=== PATIENT | male | born 1970 | race Caucasian/White ===

== ENCOUNTER 2020-12-14 04:46 | Emergency (ER) | payer OTHER, SELFPAY ==
[2020-12-14 04:48] VITALS: BP 153/100; PULSE 84; RESP 16; TEMP 36.4; O2SAT 95; BMI 25.4
[2020-12-14 05:16] LABS: Absolute Lymphocyte Count 0.87 X10^3/uL (0.83-4.51); Absolute Neutrophil Count 6.5 X10^3/uL (2.0-7.7); Basophil# 0.05 X10^3/uL; Basophil% 0.6 % (0-1); Eosinophil# 0.08 X10^3/uL; Hematocrit 44.5 % (40-54); Hemoglobin 16.1 g/dL (13.0-16.5); Lymphocyte # 0.87 X10^3/ul (4.0); Mean Corp Hgb Conc 36.2 g/dL (32-36); Mean Corpuscular Hgb 31.3 pg (27.0-32.0); Mean Corpuscular Volume 86.6 fL (80-94); Mean Platelet Vol. 8.7 fl (6.2-12.0); Monocyte% 5.1 % (0-10); NRBC Flagged by Analyzer 0 % (0-5); Neutrophil # 6.49 X10^3/uL (2.7-7.7); Platelet Count 244 K/mm3 (150-450); RBC Distribution Width CV 11.2 % (11.6-14.6); RBC Distribution Width SD 35.7 fl (35.1-43.9); Red Blood Count 5.14 M/mm3 (4.6-6.2); White Blood Count 7.9 K/mm3 (4.4-11.0)
--- NOTE | 2020-12-14 05:18 | CT_ITS ---
HISTORY: left flank pain TECHNIQUE: Helically acquired images were obtained of the abdomen and pelvis without oral or IV contrast. A radiation dose optimization technique was used for this scan. COMPARISON: [address] scan of the abdomen and pelvis is from May 03, 2014. FINDINGS: # of images incl. paperwork: 465 LUNG BASES: Right lower lobe benign calcified granuloma. Scarring within the right posterior lung is unchanged. CT abdomen: Some degenerative disc disease. Mild thoracolumbar dextroscoliosis may just be due to splinting. The gallbladder remains. The stomach is distended with gas and liquid.. Liver, spleen, pancreas, and adrenal glands are normal. The right kidney is normal. Left kidney demonstrates edema, perirenal edema, hydronephrosis, and nonobstructing nephroliths. Within the proximal left ureter, perhaps best demonstrated on the coronal images, there are at least 6 stones within the ureter. The lead stone, the most inferior stone, causing the obstruction with in the proximal left ureter measures 5 x 6 mm. This is present best demonstrated on series 601 image 57, and coronal 2-D reformats. Exophytic hypodense mass the posterior aspect midportion left kidney is likely a benign cyst. Hypodense areas within the anterior cortex of midportion of the left kidney also likely represent benign cysts. No more distal left ureteric stones are perceived.. The aorta is diseased with atherosclerotic plaque, but without aneurysm.. There is no intra-or extrahepatic biliary ductal dilatation. CT pelvis: No ascites is present. The prostate gland is minimally enlarged indenting into the posterior inferior aspect of the urinary bladder. The appendix is normal. Series 2 image 109. The bladder is mostly decompressed. Small bilateral inguinal hernias containing only fat. Diverticulosis from the transverse colon into the sigmoid colon without diverticulitis.. CT/Abdomen/Pelvis without Cont IMPRESSION: Probably 6 stones fall on top of each other, stacked on one another within the proximal left ureter. The most downstream of the stones, the stone causing the obstruction of the left ureter measures 6 x 5 mm. Left hydronephrosis left hydroureter and left perirenal edema. Distended stomach with gas and liquid. Individualized dose optimization techniques were used for this CT. at 0644 Reported and signed by: Ron Barnes MD Electronically Signed: Ron Barnes MD at 6:43 EDT Tel , Service support ,
--- NOTE | 2020-12-14 05:18 | ED.DCSUM_ITS ---
History of Present Illness Chief Complaint: Flank Pain Informant: Patient - Abdominal Pain/Flank Pain Onset: Hours - 4 Context: Sudden Onset Timing: Continuous, Waxes and wanes Quality: Aching Location: Left Flank Current Severity: Severe Maximum Severity: Severe Worsened by: Nothing Relieved by: Nothing - Nausea/Vomiting/Emesis GI Symptom: Nausea - Diarrhea/Melena/Hematochezia GI Symptom: Negative for: Diarrhea, Melena, Hematochezia Associated Symptoms: Negative for: Dysuria, Frequency, Hematuria Narrative: Patient with multiple prior kidney stones, he has had surgical removal of them in the past, but he has not had one in a while. He took an oxycodone this morning after the pain started but it is not controlling the pain at all. Prior similar symptoms: Yes - Kidney stones Recent Illness/Hospitalization: No - Past Medical History (1) Hyperlipidemia Status: Chronic (2) Prediabetes Status: Chronic (3) Kidney stones Status: Chronic Past Medical History - Allergies and Home Meds Allergies/Adverse Reactions: Allergies celecoxib [From Celebrex] Allergy (Verified 12/14/20 04:48) Svetlana Primary Care Physician: Mary Jane Dangelo CHIPPING MACHINE OPERATOR, CHIPPING MACHINE OPERATOR-C [Primary Care Provider] - Doctors: Urology - Tim Surgical History: - - Kidney stones Smoking Status: Former smoker Review of Systems General: Denies: Chills, Fever, Sweats Eyes: Denies: Visual changes - bilaterally, Diplopia ENT: Denies: Rhinorrhea, Sore throat Cardiovascular: Denies: Chest pain, Palpitations Respiratory: Denies: Dyspnea, Cough, Dyspnea on exertion Gastrointestinal: Reports: Abdominal pain, Nausea. Denies: Vomiting, Diarrhea, Melena, Hematochezia Genitourinary: Denies: Dysuria, Hematuria, Frequency Musculoskeletal: Reports: Back pain. Denies: Extremity Pain Skin: Denies: Rash, Wounds Neurological: Denies: Headache, Weakness, Numbness Physical Exam Vital Signs/Narrative: Vital Signs Temp Pulse Resp BP Pulse Ox 12/14/20 04:48 97.6 F L 84 16 153/100 H 95 Inital Vital Signs reviewed: Yes General: Well nourished, Well developed, Acute Distress - painful; pacing room Head: Normocephalic, Atraumatic Eyes: Perrl, EOMI ENT: Moist mucous membranes, No rhinorrhea Neck: Supple, Nontender Cardiovascular: Regular rate, Regular rhythm, No murmurs Respiratory: No distress, CTA bilaterally, Chest nontender Abdomen: Soft, Nondistended, Normal bowel sounds, Tender - in left lateral flank only, closer to back, subcostal Back: Nontender, Normal Inspection. Negative for: CVA tenderness Extremities: Nontender, No edema Skin: Normal color, No rash, No Trauma Neurological: Alert, Oriented x3, Cranial nerves II-XII grossly intact, Normal Strength, Normal Sensation, Normal Gait Psychological: Normal Mood, Agitated - mildly due to pain Diagnostic/Tx/Re-eval Impressions Abdomen/Pelvis CT 12/14/20 05:18 IMPRESSION: Probably 6 stones fall on top of each other, stacked on one another within the proximal left ureter. The most downstream of the stones, the stone causing the obstruction of the left ureter measures 6 x 5 mm. Left hydronephrosis left hydroureter and left perirenal edema. Distended stomach with gas and liquid. Individualized dose optimization techniques were used for this CT. at 0644 Reported and signed by: Ron Barnes MD Electronically Signed: Ron Barnes MD at 6:43 EDT Tel , Service support , 12/14/20 05:18 CT Abd [Abdomen/Pelvis without Cont] [CT] Stat Laboratory Results 12/14/20 12/14/20 12/14/20 04:55 04:55 05:40 WBC 7.9 RBC 5.14 Hgb 16.1 Hct 44.5 MCV 86.6 MCH 31.3 MCHC 36.2 H RDW Std Deviation 35.7 RDW Coeff of Ryder 11.2 L Plt Count 244 MPV 8.7 Immature Gran % (Auto) 0.300 Neut % (Auto) 82.0 H Lymph % (Auto) 11.0 L Lawrence % (Auto) 5.1 Eos % (Auto) 1.0 Baso % (Auto) 0.6 Absolute Neuts (auto) 6.5 Absolute Lymphs (auto) 0.87 Nucleated RBC % 0 Sodium 136 Potassium 4.0 Chloride 103 Carbon Dioxide 22.0 Anion Gap 11 BUN 17 Creatinine 1.27 Estim Creat Clear Calc 68.81 Est GFR (MDRD) Af Amer 77 Est GFR (MDRD) Non-Af 63 BUN/Creatinine Ratio 13.4 Glucose 281 H Calcium 9.6 Urine Color Yellow Urine Clarity Clear Urine pH 5.0 Ur Specific [place] Pos 1.025 Urine Protein 30 H Urine Glucose (UA) 1000 H Urine Ketones 50 H Urine Occult Blood 250 H Urine Nitrite Positive H Urine Bilirubin Negative Urine Urobilinogen Normal Ur Leukocyte Esterase Negative Urine RBC 5-10 SEEN Urine WBC 0-5 SEEN Ur Squamous Epith Cells 0 SEEN Urine Bacteria 1+ Urine Mucus 0 SEEN - Medical Decision Making Patient presenting with renal colic, initially treated with morphine but it did not help much, so he was then given Dilaudid, he was very comfortable and keenly alert after that. Still nauseated after Zofran so he was additionally given Reglan as well. CT results were discussed with the patient as above, he has multiple stones in the left ureter with the main obstructing stone at 6 mm in diameter. Symptoms are under good control right now, urine is positive for nitrite but I think this is a false positive, everything else is negative and it probably is not infected. At this time, the patient desires to be discharged. He states the oxycodone that he took prior to coming here was and left over from before, which is why it may not have worked, will give him a new prescription in addition to antiemetics, urine strainers with instructions to strain, and close outpatient follow-up advised. We discussed reasons to return he is comfortable with that plan. ED Disposition - Plan for ED Patient: Disposition: Home or Assisted Living Diagnosis: Renal colic on left side, Ureterolithiasis Instructions: ED Kidney Stone w/ Colic Prescriptions: Oxycodone HCl/Acetaminophen [Percocet 5/325] 1 tablet PO Q6H PRN PRN 5 Days #20 tablet PRN Reason: pain Transmission Status: Received by [id number] Ondansetron [Zofran Odt] 8 mg PO Q8H PRN PRN #20 tablet PRN Reason: Nausea Transmission Status: Pending to [id number] Referrals: Mary Jane Dangelo NP, CHIPPING MACHINE OPERATOR-C [Primary Care Provider] - Hipolito Dumont MD [STAFF PHYSICIAN] - 1 Week if not improving
[2020-12-14 05:31] LABS: Anion Gap 11 (5-15); BUN 17 mg/dL (7-18); BUN/Creat Ratio 13.4 RATIO (10-20); Calcium,Total 9.6 mg/dL (8.5-10.1); Chloride 103 mmol/L (98-107); Creatinine, Serum 1.27 mg/dL (0.70-1.30); EST Glomerular Filtration Rate 63 mL/min (>60); Est Glom Filt Rate - Afr Amer 77 mL/min (>60); Estimated Creatinine Clearance 68.81 ml/min; Glucose 281 mg/dL (74-106); Sodium Level 136 mmol/L (136-145)
[2020-12-14] MEDS: Ondansetron 4 MG/2 ML Vial IV (05:42)
[2020-12-14] MEDS: Morphine 4 MG/ML Syringe IV (05:44)
[2020-12-14 05:46] LABS: Color, Urine Yellow (Yellow); Glucose, Dipstick 1000 mg/dl (Normal); Ketone-Dipstick 50 mg/dl (Negative); Leukocyte Esterase-Dipstick Negative /ul (Negative); Mucous, Urine 0 SEEN /hpf (<or=2+); Nitrite-Dipstick Positive (Negative); Occult Blood-Urine 250 /ul (Negative); Protein-Dipstick 30 mg/dl (Negative); Specific Gravity, Urine 1.025 (1.002-1.030); Squamous Epithelial Cells - UA 0 SEEN /hpf (0-5); Urine Bilirubin Dipstick Negative (Negative); Urine Clarity Clear (Clear); Urine Urobilinogen Normal (Normal)
[2020-12-14 05:56] LABS: Red Blood Cells-Urine 5-10 SEEN /hpf (0-5); White Blood Cells 0-5 SEEN /hpf (0-5)
[2020-12-14 05:57] LABS: Bacteria 1+ /hpf (None Seen)
[2020-12-14] MEDS: HYDROmorphone 1 MG/ML Syringe IV (06:21)
[2020-12-14] MEDS: Metoclopramide 10 MG/2 ML Vial 5 MG IV (06:22)
[2020-12-14 07:41] VITALS: PULSE 70; RESP 16; O2SAT 98
== END 2020-12-14 07:42 | disposition home or self-care (01) ==
PROVIDERS: Emergency Provider Emergency Medicine; PCP Nurse Practitioner
DX: N13.2 Hydronephrosis with renal and ureteral calculous obstruction (principal); E78.5 Hyperlipidemia, unspecified; Z87.891 Personal history of nicotine dependence; Z87.442 Personal history of urinary calculi; Z79.84 Long term (current) use of oral hypoglycemic drugs
CPT/HCPCS: 74176; 80048; 81001; 85025; 96374; 96375; 99284; J7030; A4216; J2405

== ENCOUNTER 2020-12-26 10:22 | Day surgery (SDC) | payer OTHER, SELFPAY ==
[2020-12-26 10:40] VITALS: BP 102/60; PULSE 62; RESP 16; TEMP 36.6; O2SAT 97; BMI 23.2
[2020-12-26] MEDS: Lactated Ringers 1,000 ML 100 ML IV ×2 (11:00→13:25)
[2020-12-26 11:10] LABS: Bedside Glucose 242 mg/dL (70-110)
[2020-12-26] MEDS: Cefazolin 2 GM in 0.9% Normal Saline 100 ML IV (12:24)
--- NOTE | 2020-12-26 13:10 | PCM.HP.STD ---
Problem List (1) Kidney stones Status: Chronic History of Present Illness Date of Admission: 12/26/20 Chief Complaint: Multiple left kidney stones with obstruction status post stent left side The patient is a 50 year old male who underwent a cystoscopy and stent placement at outside hospital for obstructing stones and then call my office and we agreed to proceed now for left ureteroscopy and laser lithotripsy and stent placement the patient understands because of the stone burden it is imperative that he has a stent after the procedure. Past Medical History Past Medical History (Chronic Problems): Chronic Problems Hyperlipidemia (Chronic) Prediabetes (Chronic) Kidney stones (Chronic) Allergies celecoxib [From Celebrex] Allergy (Verified 12/24/20 11:53) Hives Home Medications: Ambulatory Orders Medication Instructions Recorded Metformin HCl [Metformin HCl ER] 500 mg PO BID 11/28/16 Rosuvastatin Calcium [Crestor] 5 mg PO QHS 12/14/20 Cholecalciferol (Vitamin D3) 50 mcg PO DAILY 12/24/20 [Vitamin D3] Icosapent Ethyl [Vascepa] 1 gm PO BID 12/24/20 Omeprazole Magnesium [Prilosec Otc] 20 mg PO DAILY 12/24/20 Testosterone 1.62 gm TD DAILY 12/24/20 Surgical History: - - Kidney stones Smoking Status: Former smoker Tobacco Use: Non-smoker, Chew Review of Systems Constitutional: Denies: Chills, Fever, Weight Change HEENT: Denies: Head Aches, Sinus Congestion, Sinus Drainage Cardiovascular: Denies: Chest Pain, Palpitations Respiratory: Denies: Cough, Shortness of breath at rest, Sputum production Gastrointestinal: Denies: Abdominal Pain, Nausea, Vomiting Genitourinary: Denies: Dysuria Musculoskeletal: Denies: Joint Pain, Joint Tenderness Skin: Denies: Rash, Wounds Neurological: Denies: Numbness, Tingling, Focal weakness Psychiatric: Denies: Anxiety, Depression, Homicidal Ideations, Suicidal Ideations Hematologic/ Lymphatic: Denies: Easy Bruising, Easy Bleeding VTE Information - Inpt Only VTE Present on Admission: No VTE Mechan Device Prophylaxis: SCD's - Physical Exam Vitals/I&O's: Vital Signs Temp Pulse Resp BP Pulse Ox 98 F 62 16 102/60 97 12/26/20 10:40 12/26/20 10:40 12/26/20 10:40 12/26/20 10:40 12/26/20 10:40 Oxygen Delivery Method Room Air Weight: 71.3 kg Body Mass Index (BMI) 23.2 Intake and Output for Last 24 Hours 12/24/20 12/25/20 12/26/20 23:59 23:59 23:59 Intake Total 110 / 110 Balance 110 / 110 General: Alert, Oriented x3, Cooperative HEENT: Atraumatic, PERRLA, EOMI, Normocephalic Neck: Supple, No JVD, Negative Carotid Bruits Lungs: Clear to auscultation, Normal air movement Cardiovascular: Regular rate, No murmurs Abdomen: Bowel Sounds Present, Soft, Non Tender Extremities: No edema, Capillary Refill Less than 3 Seconds Skin: No rashes, No breakdown Musculoskeletal: No Tenderness to Palpation of Joints or Extremities Neurological: Cranial nerves II-XII grossly intact Psych/Mental Status: Normal Affect, Appropriate Microbiology Past 72 Hours 12/25/20 10:50 Interface Orders SARS-CoV-2 Antigen (Rapid) - Final Laboratory Results 12/26/20 10:47: POC Glucose 242 H Current Medications Lactated Ringer's () 1,000 mls @ 100 mls/hr IV .Q10H GREGG Last Admin: 12/26/20 11:00 Dose: 100 mls/hr Documented by: Assessment/Plan 50-year-old male with multiple large stones in the proximal left ureter and the left kidney CT scan reviewed he underwent cystoscopy and left stent placement outside hospital and outcomes here for definitive treatment of the obstructing stones and stones in the kidney.
--- NOTE | 2020-12-26 13:15 | DCINST_ITS ---
Discharge Diet: Light diet - advance as tolerated Discharge Activity: Return to Normal Activity Call your doctor if your incision/area has: Sudden Increased Bleeding Call your doctor if you observe: Fever of 101 or Higher Allergies/Adverse Reactions: Allergies celecoxib [From Celebrex] Allergy (Verified 12/24/20 11:53) Hives Medications to take at Discharge Metformin HCl [Metformin HCl ER] 500 mg PO BID 11/28/16 Rosuvastatin Calcium [Crestor] 5 mg PO QHS 12/14/20 Cholecalciferol (Vitamin D3) [Vitamin D3] 50 mcg PO DAILY 12/24/20 Icosapent Ethyl [Vascepa] 1 gm PO BID 12/24/20 Omeprazole Magnesium [Prilosec Otc] 20 mg PO DAILY 12/24/20 Testosterone 1.62 gm TD DAILY 12/24/20 Ciprofloxacin [Cipro] 500 mg PO BID #10 tab 12/26/20 Hydrocodone Bitart/Apap 5-325 [[place] 5MG-325MG] 1 tablet PO Q4H PRN PRN 7 Days #14 tab 12/26/20 Phenazopyridine HCl [Pyridium] 100 mg PO TID PRN PRN 10 Days #20 tablet 12/26/20 Tamsulosin HCl [Flomax] 0.4 mg PO DAILY #10 capsule 12/26/20 The following prescriptions were given: Ciprofloxacin [Cipro] 500 mg PO BID #10 tab Prescription Printed Tamsulosin HCl [Flomax] 0.4 mg PO DAILY #10 capsule Prescription Printed Hydrocodone Bitart/Apap 5-325 [[place] 5MG-325MG] 1 tablet PO Q4H PRN PRN 7 Days #14 tab PRN Reason: Pain Prescription Printed Phenazopyridine HCl [Pyridium] 100 mg PO TID PRN PRN 10 Days #20 tablet PRN Reason: burning Prescription Printed Primary Care Physician: Mary Jane Dangelo MILK BOTTLING MACHINE OPERATOR, MILK BOTTLING MACHINE OPERATOR-C [Primary Care Provider] - Test Results: Test results from this visit will be discussed in further detail at your follow- up appointment, if applicable. Please Follow Up With: Hipolito Dumont MD When: please call to make an appointment.
--- NOTE | 2020-12-26 13:16 | OP.PCM_ITS ---
Problem List (1) Kidney stones Status: Chronic Report of Operation Date of Procedure: 12/26/20 Pre-Operative Diagnosis: Left proximal ureteral stones and left kidney stones Post-Operative Diagnosis: Same Surgery/Procedure Performed:: Cystoscopy left ureteroscopy laser lithotripsy of stones and left stent placement, and balloon dilation of the left ureter Description of Surgical Findings:: This is a patient who presents to the hospital for treatment for an obstructing distal ureter calculi. I discussed with the patient how the surgery would be performed and we reviewed the risks and benefits of the surgery. The risk and benefits include the risk of failure to remove the stone completely and that the patient may need multiple procedures. We discussed the risk of an infection, t he risk of bleeding. We discussed the very rare risk of serious complicated injury to the ureter. The patient understands that if the stone is not able to be removed safely that we may abort the procedure and place a stent. After full discussion and all questions address with the patient the consent form was signed the side was marked appropriately and the patient was taken back to the operating room for the procedure. The patient was taken back to the operating room. After induction of anesthesia by the anesthesiology team the patient was placed in dorsolithotomy position. The genitals were prepped and draped in usual sterile fashion. I went into the bladder with a 21 [place] rigid cystourethroscope through the urethra. Upon entering the bladder I inspected the trigone the left and right ureteral orifice and the bladder itself. Removed the prior stent and then cannulated the ureteral orifice and advanced a 0.038 Glidewire up into the kidney. Then over the Glidewire I advanced a 5 Fr Ureteral catheter and performed a retrograde pyelogram with about 10cc of contrast, to delineate the anatomy and identify the stone location. Then a ureteral balloon dilator was advanced over the wire and the distal ureter was balloon dilated with a 12 Fr x 5cm balloon dilator. After 3 minutes of dilating the ureter the balloon was backloaded off the 0.038 glidewire then the safety wire was left in place. I then placed a second 0.038 Guidewire as a working wire and over the working 0.038 guidewire I went in with a Flexible 7.9fr ureteroscope. I was able to go inside with the 7.9Fr flexible utereroscope and I pulled out the working guidewire and then through the 7.9 fr flexible ureteroscope I ascended up the ureter with direct visualization until the stone was located, then I engaged the multiple stones within the proximal ureter, upper pole kidney, and lower pole kidney stones with laser lithotripsy using a 270miron laser fiber with energy setting of 6 Hertz and 0.6 J until the stone was lasered into tiny little pieces that should pass on their own. After successful chriss lithotripsy of the stone and stone fragements, a retrograde pyelogram was performed with 10cc of contrast and no extravasation of contrast or perforation was identified in the ureter. I then backed out of the ureter left the wire in place and then over the 0.038 guidewire I placed a double coile d pigtail ureteral stent. The ureteral stent was advanced over the 0.038 guidewire under direct fluoroscopic guidance and direct cystoscopic visual guidance, once the stent was in good position I pulled the wire and the stent coiled in the kidney and bladder in good position. I then drained the patient's bladder and the cystoscope was removed and the patient was taken back to the recovery room in good position. The patient was given discharge instructions to call the office for instructions on when to come to the office to have the stent removed. Type of Anesthesia:: General Drains: stent left side - Admit VTE Documentation VTE Present on Admission: No VTE Mechan Device Prophylaxis: SCD's
[2020-12-26 13:18] VITALS: BP 102/60; BP 106/72; PULSE 77; RESP 16; TEMP 36.1; O2SAT 97
[2020-12-26] MEDS: Ketorolac 30 MG/ML Syringe IV (13:27)
[2020-12-26 13:30] VITALS: BP 102/60; BP 108/72; PULSE 78; RESP 16; O2SAT 97
[2020-12-26 13:45] VITALS: BP 102/60; BP 105/75; PULSE 71; RESP 16; TEMP 36; O2SAT 97
[2020-12-26 14:30] VITALS: BP 102/60; BP 117/71; PULSE 63; RESP 16; TEMP 36.6; O2SAT 99
== END 2020-12-26 14:33 | disposition home or self-care (01) ==
LOC: SDC 10:22 → AC 10:22
PROVIDERS: PCP Nurse Practitioner; Referring Provider Urology; Visit Provider Urology
PROC: 0TJ98ZZ Inspection of Ureter, Via Natural or Artificial Opening Endoscopic (ICD-10-PCS; CPT 52352; principal; 2020-12-26 11:50)
DX: N20.2 Calculus of kidney with calculus of ureter (principal); Z20.828 Contact with and (suspected) exposure to other viral communicable diseases; E78.5 Hyperlipidemia, unspecified; R73.03 Prediabetes; Z79.899 Other long term (current) drug therapy; Z79.84 Long term (current) use of oral hypoglycemic drugs; F17.220 Nicotine dependence, chewing tobacco, uncomplicated; Z86.718 Personal history of other venous thrombosis and embolism; K21.9 Gastro-esophageal reflux disease without esophagitis
CPT/HCPCS: 00918; 52356; 76000; 82962; 87426; C9803; J7120; C1769; C2617; J2405

== ENCOUNTER → 2020-12-31 06:39 | Outpatient (CLI) | payer OTHER, SELFPAY ==
[2020-12-26 10:40] VITALS: BMI 23.2
--- NOTE | 2020-12-31 10:11 | RAD_ITS ---
STUDY: X-RAY - ABDOMEN/PELVIS REASON FOR EXAM: Male, 50 years old. Flank pain TECHNIQUE: Two AP supine views of the abdomen and pelvis. COMPARISON: No recent studies, 2017 FINDINGS: Normal visualized lung bases. Left-sided JJ stent is in satisfactory position. Multiple calcifications overlying the lower pole of the left kidney. There is a calcific density in the proximal third of the left ureter projecting between the left transverse processes of L3 and L4 measuring approximately 3 mm. No other calcifications noted along the course of the stent no calcifications noted over the right kidney or expected course of the right ureter. There is an unremarkable bowel gas pattern. There is no demonstrated free abdominal air. The visualized liver, spleen and kidneys are grossly normal in size and morphology. Normal soft tissue structures. Normal visualized osseous structures. RAD/Abdomen Single View IMPRESSION: Left nephrolithiasis 3 mm stone in the proximal third of the left ureter along the JJ stent Electronically Signed: Cleve Nava MD at 10:49 EDT , Service support ,
== END ==
LOC: RAD.FUTURE 06:40 → RAD 10:09
PROVIDERS: PCP Nurse Practitioner; Referring Provider Urology; Visit Provider Urology
DX: N20.1 Calculus of ureter (principal)
CPT/HCPCS: 74018

== ENCOUNTER → 2021-02-13 10:07 | Outpatient (CLI) | payer OTHER, SELFPAY ==
--- NOTE | 2021-02-13 10:10 | RAD_ITS ---
STUDY: X-RAY - ABDOMEN/PELVIS REASON FOR EXAM: Male, 50 years old. KIDNEY STONE TECHNIQUE: Single AP view of the abdomen / pelvis. COMPARISON: Comparison is made with prior examination dated 12/31/2020. FINDINGS: There is a moderate amount of colonic fecal material. The left-sided double-J stent catheter has been withdrawn. Residual calculi are seen in the lower pole calyx of the left kidney. These are essentially unchanged. Normal soft tissue structures. Normal visualized osseous structures. RAD/Abdomen Single View IMPRESSION: Stable calculi in the inferior pole calyx of the left kidney. Electronically Signed: Shadi Lopez MD at 14:11 EDT , Service support ,
== END ==
PROVIDERS: PCP Nurse Practitioner; Referring Provider Urology; Visit Provider Urology
DX: N20.0 Calculus of kidney (principal)
CPT/HCPCS: 74018

== ENCOUNTER → 2021-02-27 13:16 | Outpatient (CLI) | payer SELFPAY ==
--- NOTE | 2021-02-27 13:21 | CT_ITS ---
STUDY: CT CHEST WITHOUT CONTRAST REASON FOR EXAM: Male, 50 years old. ATHEROSCLEROSIS PLAQUE RADIATION DOSAGE (If Supplied By Facility): CTDIvol = ( 12.19 ) mGy, DLP = ( 219.42 ) mGycm TECHNIQUE: Transaxial imaging was performed without the administration of intravenous contrast material. Cardiac over read examination. Individualized dose optimization techniques were used for this CT. COMPARISON: None. FINDINGS: Calcified granulomas in the right lower lobe. Minimal increased markings at the lung bases suggestive of early atelectasis and/or scarring. There is no demonstrated pleural abnormality. There are calcifications of the coronary arteries. There are multiple small lymph nodes within the mediastinum, which are normal in size and morphology most compatible with reactive lymph hyperplasia. Normal hilar regions. Normal unenhanced pulmonary arteries. Normal aorta arch and descending thoracic aorta. Normal osseous structures. There is no demonstrated abnormality of the visualized upper abdomen. CT/Limited Chest CT w/CCTA IMPRESSION: Minimal coronary calcification. Mild increased markings at the lung bases suggestive of linear atelectasis and/or scarring. Electronically Signed: Shadi Lopez MD at 15:12 EDT , Service support ,
[2021-02-27 13:27] VITALS: BP 106/70; PULSE 85; RESP 16; O2SAT 96; BMI 23.6
[2021-02-27 13:56] VITALS: BP 107/65; PULSE 75
[2021-02-27] MEDS: Metoprolol Tartrate 5 MG/5 ML Vial IV (13:56)
[2021-02-27] MEDS: 0.9% Saline Lock 10 ML Syringe IV (14:00)
[2021-02-27 14:04] VITALS: BP 121/77; PULSE 72; RESP 16; O2SAT 95
--- NOTE | 2021-02-27 18:21 | CA.SCORE ---
Calcium Scoring Coronary Calcium Scoring: High-resolution Computed Tomographic imaging of the chest was performed on [06/2021], with particular attention paid to the coronary arteries. Images from the examination were analyzed for the presence and extent of coronary artery calcification , using coronary calcium quantification software. The patient tolerated the procedure well and there were no complications. The results of the coronary calcification analysis are provided below. Left main coronary artery score 0 Left anterior descending artery score 17.1 Left circumflex artery score 0 Right coronary artery score 0 Total Agatston score 17.1. Percentile rankings 50% The above is suggestive of mild plaque burden. Full evaluation of cardiac risk should include an assessment of all conventional risk factors and the scores and percentile rankings reported hearing should be evaluated in that context. Calcium Scoring Interpretation: 0 No identifiable atherosclerotic plaque. Very low cardiovascular disease risk. <5% chance of presence coronary artery disease A Negative Examination 1-10 Minimal Plaque burden. Significant coronary artery disease very unlikely. 11-100 Mild plaque burden. Likely mild or minimal coronary atherosclerosis. 101-400 Moderate plaque burden Moderate non-obstructive coronary artery disease highly likely. Over 400 Extensive plaque burden. High likelihood of at least one significant coronary stenosis (>50% diameter)
== END ==
PROVIDERS: PCP Nurse Practitioner; Referring Provider Nurse Practitioner; Visit Provider Nurse Practitioner
DX: I70.90 Unspecified atherosclerosis (principal)
CPT/HCPCS: 75571; 76380; 96374

== ENCOUNTER → 2021-09-02 08:04 | Outpatient (CLI) | payer OTHER, SELFPAY ==
--- NOTE | 2021-09-02 08:15 | RAD_ITS ---
STUDY: X-RAY - ABDOMEN/PELVIS REASON FOR EXAM: Male, 51 years old. CALCULUS OF KIDNEY TECHNIQUE: Single AP view of the abdomen / pelvis. COMPARISON: 02/13/2021 FINDINGS: Normal visualized lung bases. There is an unremarkable bowel gas pattern. No change in 8 mm calcific opacity projecting over lower pole left kidney consistent with a left renal stone. No definite ureteral stone. Normal soft tissue structures. Normal visualized osseous structures. RAD/Abdomen Single View IMPRESSION: No change in suspected left renal stone. No definite ureteral stone. Electronically Signed: Jens López MD at 16:49 EST Tel , Service support ,
== END ==
PROVIDERS: PCP Nurse Practitioner; Referring Provider Urology; Visit Provider Urology
DX: N20.0 Calculus of kidney (principal)
CPT/HCPCS: 74018

== ENCOUNTER → 2021-09-18 09:15 | Outpatient (CLI) | payer OTHER, SELFPAY ==
--- NOTE | 2021-09-18 09:30 | EKG12_ITS ---
Test Reason : PREOP Blood Pressure : / mmHG Vent. Rate : 082 BPM Atrial Rate : 082 BPM P-R Int : 126 ms QRS Dur : 100 ms QT Int : 358 ms P-R-T Axes : 060 063 041 degrees QTc Int : 418 ms Normal sinus rhythm with sinus arrhythmia Nonspecific T wave abnormality Abnormal ECG Confirmed by CHEO العراقي, IMTIAZ ([id number]), editor news EDOUARD VALLE ([id number]) on 09/22/2021 2:18:30 PM Referred By: Hipolito Dumont Confirmed By:IMTIAZ GRIDER MD
[2021-09-18 10:44] LABS: Hematocrit 47.7 % (40-54); Hemoglobin 16.8 g/dL (13.0-16.5); Mean Corp Hgb Conc 35.2 g/dL (32-36); Mean Corpuscular Hgb 30.9 pg (27.0-32.0); Mean Corpuscular Volume 87.7 fL (80-94); Mean Platelet Vol. 8.8 fl (6.2-12.0); Platelet Count 227 K/mm3 (150-450); RBC Distribution Width CV 11.5 % (11.6-14.6); RBC Distribution Width SD 36.7 fl (35.1-43.9); Red Blood Count 5.44 M/mm3 (4.6-6.2); White Blood Count 3.7 K/mm3 (4.4-11.0)
[2021-09-18 11:06] LABS: Anion Gap 7 (5-15); BUN 15 mg/dL (7-18); Calcium,Total 9.1 mg/dL (8.5-10.1); Chloride 108 mmol/L (98-107); Creatinine, Serum 1.07 mg/dL (0.70-1.30); EST Glomerular Filtration Rate 77 mL/min (>60); Est Glom Filt Rate - Afr Amer 93 mL/min (>60); Glucose 175 mg/dL (74-106); Sodium Level 140 mmol/L (136-145)
== END ==
PROVIDERS: PCP Nurse Practitioner; Referring Provider Urology; Visit Provider Urology
DX: Z01.810 Encounter for preprocedural cardiovascular examination (principal)
CPT/HCPCS: 36415; 80048; 85027; 93005

== ENCOUNTER 2021-10-22 08:40 | Outpatient (CLI) | payer OTHER, SELFPAY ==
--- NOTE | 2021-10-22 08:52 | RAD_ITS ---
EXAM: XR ABDOMEN, 1 VIEW CLINICAL INDICATION: CALCULUS OF KIDNEY POST LITHOTRIPSY, LEFT SIDE STONES TECHNIQUE: Frontal supine view of the abdomen/pelvis. This report was created using [employer] report generation technology. COMPARISON: 09.02.21 FINDINGS: LOWER THORAX: No acute pathology. GASTROINTESTINAL TRACT: Stool throughout the colon. Non-obstructive. No bowel or stomach distention. ORGANS: Unremarkable as visualized. No organomegaly. No abnormal calcifications. BONES/JOINTS: No acute pathology. SOFT TISSUES: No acute pathology. RAD/Abdomen Single View IMPRESSION: Stool throughout the colon. Electronically Signed: Neftaly Reis MD at 20:58 EST ,
== END 2021-10-22 23:59 | disposition short-term general hospital (02) ==
LOC: RAD 08:50
PROVIDERS: PCP Nurse Practitioner; Referring Provider Urology; Visit Provider Urology
DX: N20.0 Calculus of kidney (principal)
CPT/HCPCS: 74018

== ENCOUNTER 2022-11-16 09:28 | Day surgery (SDC) | payer OTHER, SELFPAY ==
[2022-11-16] VITALS (8 sets, daily range): BP systolic 102–116; BP diastolic 66–77; PULSE 63–80; RESP 14–16; TEMP 36.1–36.4; O2SAT 93–99; BMI 24.4
--- NOTE | 2022-11-16 | COLBX_PTH ---
PATIENT: UMANG RUSSELL LOC: EN U#:[id number] AGE/SX: 52/M ROOM: RE11/16/[address]: Dr. Chalino Pacheco DO : 1970 BED: DIS: 11/16/2022 SPEC #: [id number] RECD: 11/16/22 13:41 STATUS: BRETT REZhanna #: [id number] KISHAN: 11/16/22 00:[address]: Chalino Pacheco DEPT: SURGICAL PATHOLOGY RECD BY: Chuy Peterson ENTERED: 11/17/22 10:04 SP TYPE: COLON BX SASHA DR: Radha Acosta, DAIRY HAND-C Tissues: Ascending colon Procedures: Surgery Specimen Level IV HEADER OPERATION: Colonoscopy ? open access (MAC) PRE-OP DIAGNOSIS: Screening TISSUE SUBMITTED: Ascending colon polyp MICROSCOPIC DIAGNOSIS Ascending colon polyp, biopsy: Tubular adenoma. SJ:octavio 11/18/2022 MICROSCOPIC DESCRIPTION Slides are reviewed. GROSS DESCRIPTION Received in fixative is one container labeled with the patient's name and designated ascending colon polyp. The specimen consists of multiple irregular fragments of light blount soft tissue that in aggregate measure 0.5 x 0.4 x 0.1 cm. The specimen is totally submitted in one cassette. / SJ:octavio 11/17/2022 TC:1 CPT: 89293
--- NOTE | 2022-11-16 10:00 | PCM.HP.STD ---
HPI - General General Date of Service: 11/16/22 Chief Complaint: screening colonoscopy HPI Narrative UMANG RUSSELL, is a 52 M who presents today for screening colonoscopy. His father had polyps. He has never had a colonoscopy. He is not having abdominal pain. He is not any vomiting. He does not have any chest pain or shortness of breath. All other 16 review systems negative except as per body mentioned HPI. [facility] Medical History (Updated 11/10/22 @ 14:10 by Anni Alanis) Alcohol use Back pain Diabetes DVT (deep venous thrombosis) Former smoker Gastric reflux Gastro-esophageal reflux disease without esophagitis Hypotestosteronism Pure hypercholesterolemia, unspecified Wears glasses Home Medications rosuvastatin 5 mg tablet 5 mg PO QHS 12/14/20 [History Last Taken Unknown] cholecalciferol (vitamin D3) 50 mcg (2,000 unit) capsule 50 mcg PO DAILY 12/24/20 [History Last Taken Unknown] omeprazole magnesium 20 mg tablet,delayed release 20 mg PO DAILY 12/24/20 [History Last Taken 12/26/20 08:00 20 MG] testosterone 1.62 % (20.25 mg/1.25 gram) transdermal gel packet 1.62 gm transdermal DAILY 12/24/20 [History Last Taken Unknown] ibuprofen 400 mg tablet 400 mg PO Q8H PRN Pain 09/10/22 [History Last Taken Unknown] mirtazapine 7.5 mg tablet 7.5 mg PO DAILY 09/10/22 [History Last Taken Unknown] semaglutide 14 mg tablet (Rybelsus) 14 mg PO DAILY 09/10/22 [History Last Taken Unknown] Allergy/AdvReac Type Severity Reaction Status Date / Time celecoxib [From Celebrex] Allergy Hives Verified 11/10/22 14:00 ciprofloxacin Allergy Pain in Verified 11/10/22 14:00 joints Family History (Updated 09/10/22 @ 13:35 by Swetha Pruitt) Father Colon polyps Mother Cancer Surgical History (Updated 11/10/22 @ 14:10 by Anni Alanis) History of cystoscopy History of shoulder surgery Hx of knee surgery Social History Smoking Status: Former smoker ROS Review of Systems ROS Unobtainable: other Constitutional Constitutional: Denies fatigue, fever(s), poor appetite, weight gain or weight loss ENT HEENT: Denies mouth lesions Cardiovascular Cardiovascular: Denies abdominal bloating, abdominal edema or abdominal pain Respiratory/Chest Respiratory/Chest: Denies change in mental status, change in phlegm color, chest congestion or chest tightness Gastrointestinal Gastrointestinal: Denies belching, bloating, change in bowel habits, change in stool character, chewing difficulty, coffee ground emesis, constipation, cramping, diarrhea, dyspepsia, dysphagia, early satiety, excessive flatus, fecal incontinence, heartburn, hematemesis, hematochezia, hemorrhoids, loose stools, melena, nausea, odynophagia, rectal bleeding, tenesmus, vomiting or weight changes Genitourinary Genitourinary: Denies abdominal discomfort, burning urination or itching Musculoskeletal Musculoskeletal: Reports as per HPI; Denies muscle weakness or myalgias Integumentary Integumentary: Denies jaundice Neurologic Neurologic: Denies lack of coordination or weakness Psychiatric Psychiatric: Denies confusion, depression, memory loss, mood swings, paranoia or suicidal ideation Endocrine Endocrinology: Denies systems reviewed and no addt'l complaints, except as documented Hematologic/Lymphatic Hematologic/Lymphatic: Denies anemia, easy bleeding, easy bruising or lymphadenopathy Allergic/Immunologic Allergic/Immunologic: Denies systems reviewed and no addt'l complaints, except as documented Vital Signs Vital Signs Vital Signs: 11/16/22 10:06 11/16/22 10:06 Temperature 97.6 F L Temperature Source Temporal Pulse Rate 75 Respiratory Rate 16 Respiratory Pattern Normal Blood Pressure 116/72 Blood Pressure Mean 86 Blood Pressure Source Monitor Blood Pressure Position Semi-Fowlers Blood Pressure Location Right Arm Pulse Ox 96 Oxygen Delivery Method Room Air Weight Weight: 165 lb 5.547 oz Body Mass Index (BMI) 24.4 Physical Exam Const alert General Appearance: cooperative Orientation / Consciousness: oriented to person HEENT hearing grossly normal bilaterally Head and Scalp: normal to inspection Face and Sinus: face symmetric Nose: external nose normal Mouth: oral and palatal mucosa normal Eyes conjunctivae normal General Eye: normal appearance of both eyes Neck full ROM General: normal visual inspection Lymph Lymphatic: no lymphadenopathy noted Chest inspection of chest normal and palpation of chest normal Chest: symmetrical chest wall rise Resp normal respiratory effort Effort and Inspection: able to speak in complete sentences Cardio regular rate GI non-distended Percussion: normal to percussion Rectal Exam: deferred Neuro Speech: speech normal Gait (Neuro): normal gait Assessment & Plan Assessment/Plan (1) Encounter for screening for malignant neoplasm of colon: PLAN: He will undergo screening colonoscopy. He was explained alternatives, risk, benefits including outstanding bleeding, infection, sepsis, perforation, need for emergent . Have an ASA of 1.
[2022-11-16] MEDS: Lactated Ringers 1,000 ML 15 ML IV (10:23)
--- NOTE | 2022-11-16 11:31 | OP.COLON_ITS ---
Patient Name: Otto Nayak Procedure Date: 11/16/2022 10:52 AM Date of : 1970 Age: 52 Procedure: Colonoscopy Indications: Screening for colorectal malignant neoplasm Providers: Chalino Pacheco DO Medicines: Monitored Anesthesia Care Patient Profile: This is a 52 year old male. Refer to note in patient chart for documentation of history and physical. Last Colonoscopy: none. The patient's first colonoscopy is today. Complications: No immediate complications. Procedure: Pre-Anesthesia Assessment: - Prior to the procedure, a History and Physical was performed, and patient medications and allergies were reviewed. The risks and benefits of the procedure and the sedation options and risks were discussed with the patient. All questions were answered and informed consent was obtained. Patient identification and proposed procedure were verified by the physician. Mental Status Examination: normal. Airway Examination: normal oropharyngeal airway and neck mobility. Prophylactic Antibiotics: The patient does not require prophylactic antibiotics. Prior Anticoagulants: The patient has taken no previous anticoagulant or antiplatelet agents. After reviewing the risks and benefits, the patient was deemed in satisfactory condition to undergo the procedure. The anesthesia plan was to use monitored anesthesia care (MAC). Immediately prior to administration of medications, the patient was re-assessed for adequacy to receive sedatives. The heart rate, respiratory rate, oxygen saturations, blood pressure, adequacy of pulmonary ventilation, and response to care were monitored throughout the procedure. The physical status of the patient was re-assessed after the procedure. After I obtained informed consent, the scope was passed under direct vision. Throughout the procedure, the patient's blood pressure, pulse, and oxygen saturations were monitored continuously. The colonoscope was introduced through the anus and advanced to the cecum, identified by appendiceal orifice and ileocecal valve. The colonoscopy was performed without difficulty. The patient tolerated the procedure well. The quality of the bowel preparation was good. Scope In: 11:00:13 AM Scope Withdrawal Time 0 hours 8 minutes 31 seconds Scope Out: 11:11:33 AM Total Procedure Duration Time 0 hours 11 minutes 20 seconds Findings: The perianal and digital rectal examinations were normal. A 9 mm polyp was found in the ascending colon. The polyp was sessile. The polyp was removed with a hot snare. Resection and retrieval were complete. Verification of patient identification for the specimen was done. Estimated blood loss was minimal. Multiple small and large-mouthed diverticula were found in the recto-sigmoid colon, sigmoid colon, descending colon, splenic flexure, transverse colon, hepatic flexure and ascending colon. Impression: - One 9 mm polyp in the ascending colon, removed with a hot snare. Resected and retrieved. - Diverticulosis in the recto-sigmoid colon, in the sigmoid colon, in the descending colon, at the splenic flexure, in the transverse colon, at the hepatic flexure and in the ascending colon. Recommendation: - Discharge patient to home. - Resume previous diet. - Continue present medications. - Await pathology results. - Repeat colonoscopy in 5 years for surveillance. Procedure Code(s): --- Professional --- 85928, Colonoscopy, flexible; with removal of tumor(s), polyp(s), or other lesion(s) by snare technique CPT copyright 2017 [employer]. All rights reserved. The codes documented in this report are preliminary and upon underwriting intern review may be revised to meet current compliance requirements. Chalino Pacheco DO 11/16/2022 11:30:39 AM This report has been signed electronically. Number of Addenda: 0 Note Initiated On: 11/16/2022 10:52 AM
--- NOTE | 2022-11-16 11:31 | OP.CCLET_ITS ---
11/16/2022 Zhang Allen Re : Colonoscopy procedure for Otto Nayak Ann[place]eller Dave This procedure was performed on Wednesday, November 16, 2022. My impressions and recommendations are as follows: Impressions : - One 9 mm polyp in the ascending colon, removed with a hot snare. Resected and retrieved. - Diverticulosis in the recto-sigmoid colon, in the sigmoid colon, in the descending colon, at the splenic flexure, in the transverse colon, at the hepatic flexure and in the ascending colon. Recommendations : - Discharge patient to home. - Resume previous diet. - Continue present medications. - Await pathology results. - Repeat colonoscopy in 5 years for surveillance. My findings are described in the full procedure note, which is enclosed. If I can be of further assistance, please feel free to contact me at . Sincerely, Chalino Pacheco, 11/16/2022 11:30:39 AM This report has been signed electronically.
[2022-11-16 12:25] LABS: Bedside Glucose 126 mg/dL (74-106)
== END 2022-11-16 12:13 | disposition home or self-care (01) ==
LOC: EN 09:34 → AC 09:35
PROVIDERS: PCP Nurse Practitioner Family; Referring Provider Nurse Practitioner Family; Visit Provider Internal Medicine Gastroenterology
PROC: 0DJD8ZZ Inspection of Lower Intestinal Tract, Via Natural or Artificial Opening Endoscopic (ICD-10-PCS; CPT 45378; principal; 2022-11-16 10:40)
DX: Z12.11 Encounter for screening for malignant neoplasm of colon (principal); D12.2 Benign neoplasm of ascending colon; K57.30 Diverticulosis of large intestine without perforation or abscess without bleeding; E78.00 Pure hypercholesterolemia, unspecified; K21.9 Gastro-esophageal reflux disease without esophagitis; Z87.891 Personal history of nicotine dependence; Z86.718 Personal history of other venous thrombosis and embolism; Z79.899 Other long term (current) drug therapy
CPT/HCPCS: 45385; 82962; 88305; J7120; J2405